=== PATIENT | male | born 1975 | race Caucasian/White ===

== ENCOUNTER 2018-05-22 14:18 | Emergency (ER) | payer OTHER, MEDICAID ==
[~2018-05-22] VITALS: Ht 182.9 cm; Wt 91.0 kg
[~2018-05-22 14:18] MED LIST: ZITHROMAX250 MG PO
[2018-05-22] MEDS ORDERED: KEFLEX500 M1 PO (15:24)
[2018-05-22 15:31] VITALS: BP 164/99
[2018-05-22] MEDS ORDERED: LISINOPRIL10 MG PO ×2 (15:35→15:36)
== END 2018-05-22 15:39 | disposition home or self-care (01) | DRG 914 ==
LOC: ED 14:18
PROC: 0HQGXZZ Repair Left Hand Skin, External Approach (ICD-10-PCS; principal; 2018-05-22)
DX: S61.422A Laceration with foreign body of left hand, initial encounter (principal); I10 Essential (primary) hypertension; F17.210 Nicotine dependence, cigarettes, uncomplicated; W29.3XXA Contact with powered garden and outdoor hand tools and machinery, initial encounter; Y93.H2 Activity, gardening and landscaping; Y92.89 Other specified places as the place of occurrence of the external cause; Y99.0 Civilian activity done for income or pay

== ENCOUNTER 2018-06-01 13:13 | Emergency (ER) | payer OTHER, MEDICAID ==
[~2018-06-01] VITALS: Ht 182.9 cm; Wt 99.5 kg
[~2018-06-01 13:13] MED LIST changes: +KEFLEX500 M1 PO; +LISINOPRIL10 MG PO
[2018-06-01 13:43] VITALS: BP 131/89
== END 2018-06-01 13:43 | disposition home or self-care (01) | DRG 950 ==
LOC: ED 13:13
DX: S61.422D Laceration with foreign body of left hand, subsequent encounter (principal)

== ENCOUNTER 2019-02-06 10:28 | Emergency (ER) | payer SELFPAY ==
[~2019-02-06] VITALS: Ht 182.9 cm; Wt 230.0 kg
[2019-02-06 11:11] LABS: HEMATOCRIT 52.3 % (39.0-50.0); HEMOGLOBIN 17.3 g/dl (14.0-18.0); MEAN CELL VOLUME 93.1 fL CALC (80.0-100.0); MEAN CORPUSCULAR HGB 30.8 pG CALC (26.0-32.0); MEAN CORPUSCULAR HGB CONC 33.1 g/L CALC (32.0-36.0); NEUT# 4.86 thou/uL (1.82-7.42); RED BLOOD COUNT 5.62 mill/uL (4.70-6.10); RED CELL DISTRI WIDTH 12.7 % (11.5-15.5)
[2019-02-06 11:19] LABS: ALBUMIN 4.4 g/dL (3.2-5.0); ALKALINE PHOSPHATASE 130 u/l (38-126); ANION GAP 13 (6-22 (CALC)); BILIRUBIN, TOTAL 0.6 mg/dL (0.0-1.4); BUN 9 mg/dL (9-20); BUN/CREATININE RATIO 12 (12-20 (CALC)); CARBON DIOXIDE 26 mmol/l (22-30); CHLORIDE 105 mmol/l (95-108); CREATININE 0.8 mg/dL (0.7-1.3); GFR > 60 ML/MIN (>=60 (CALC)); GFR FOR AFR.AMER. > 60 ML/MIN (>=60 (CALC)); LIPASE 81 u/l (23-300); POTASSIUM 4.2 mmol/l (3.5-5.1); SGOT/AST 65 u/l (17-59); SODIUM 140 mmol/l (137-146); TOTAL PROTEIN 7.7 g/dL (6.3-8.2)
[2019-02-06] MEDS ORDERED: VENTOLIN HFA IN (11:59)
[2019-02-06] MEDS ORDERED: DELTASONE20 MG PO (11:59)
[2019-02-06 12:03] VITALS: BP 169/87
== END 2019-02-06 12:15 | disposition home or self-care (01) | DRG 203 ==
LOC: ED 10:28
PROVIDERS: Emergency Medicine
DX: J45.909 Unspecified asthma, uncomplicated (principal); R06.02 Shortness of breath; R07.89 Other chest pain

== ENCOUNTER 2019-03-18 13:56 | Emergency (ER) | payer SELFPAY ==
[~2019-03-18] VITALS: Ht 182.9 cm; Wt 90.0 kg
[~2019-03-18 13:56] MED LIST changes: +DELTASONE20 MG PO; +VENTOLIN HFA IN
[2019-03-18] MEDS ORDERED: KEFLEX500 M1 PO (14:47)
[2019-03-18] MEDS ORDERED: CIPROFLOXACN500 MG PO (14:47)
[2019-03-18 14:55] VITALS: BP 187/89
== END 2019-03-18 14:55 | disposition home or self-care (01) | DRG 603 ==
LOC: ED 13:56
DX: L02.611 Cutaneous abscess of right foot (principal); L03.031 Cellulitis of right toe; F17.200 Nicotine dependence, unspecified, uncomplicated; I10 Essential (primary) hypertension

== ENCOUNTER 2019-11-05 | Emergency (ER) | payer SELFPAY ==
[~2019-11-05] MED LIST changes: +CIPROFLOXACN500 MG PO
[2019-11-05] MEDS ORDERED: LISINOPRIL2.5 MG PO (20:53)
[2019-11-05] MEDS ORDERED: WATER PILL (20:54)
[2019-11-05 21:40] LABS: HEMATOCRIT 45.6 % (39.0-50.0); HEMOGLOBIN 15.3 g/dl (14.0-18.0); IMMATURE GRANULOCYTES 0.6 % (0.0-5.0); MEAN CELL VOLUME 90.5 fL CALC (80.0-100.0); MEAN CORPUSCULAR HGB 30.4 pG CALC (26.0-32.0); MEAN CORPUSCULAR HGB CONC 33.6 g/dL CAL (32.0-36.0); NEUT# 4.57 thou/uL (1.82-7.42); RED BLOOD COUNT 5.04 mill/uL (4.70-6.10); RED CELL DISTRI WIDTH 12.9 % (11.5-15.5)
--- NOTE | 2019-11-05 21:41 | NUR ---
BREATHING TREATMENT GIVEN BACK TO BACK. BREATHING TECH. FOR GOOD DEPOSITION TO THE LUNG
[2019-11-05 21:58] LABS: ALBUMIN 3.9 g/dL (3.2-5.0); ALKALINE PHOSPHATASE 118 u/l (38-126); ANION GAP 11 (6-22 (CALC)); BILIRUBIN, TOTAL 0.5 mg/dL (0.0-1.4); BUN 15 mg/dL (9-20); BUN/CREATININE RATIO 17 (12-20 (CALC)); CARBON DIOXIDE 28 mmol/l (22-30); CHLORIDE 104 mmol/l (95-108); CREATININE 0.9 mg/dL (0.7-1.3); GFR > 60 ML/MIN (>=60 (CALC)); GFR FOR AFR.AMER. > 60 ML/MIN (>=60 (CALC)); POTASSIUM 3.9 mmol/l (3.5-5.1); SGOT/AST 35 u/l (17-59); SODIUM 139 mmol/l (137-146); TOTAL PROTEIN 6.9 g/dL (6.3-8.2)
[2019-11-05] MEDS ORDERED: VENTOLIN H108 MCG/AC IN ×2 (22:41)
[2019-11-05] MEDS ORDERED: MEDDOSEPAK PO ×2 (22:41)
[2019-11-05] MEDS ORDERED: ZITHROMAX250 MG PO (22:41)
== END 2019-11-05 23:11 | disposition home or self-care (01) | DRG 203 ==
DX: J45.901 Unspecified asthma with (acute) exacerbation (principal); J84.10 Pulmonary fibrosis, unspecified; I10 Essential (primary) hypertension; F17.200 Nicotine dependence, unspecified, uncomplicated

== ENCOUNTER 2020-05-25 20:43 | Emergency (ER) | payer SELFPAY ==
[~2020-05-25] VITALS: Ht 182.9 cm; Wt 86.3 kg
[~2020-05-25 20:43] MED LIST changes: +LISINOPRIL2.5 MG PO; +MEDDOSEPAK PO; +VENTOLIN H108 MCG/AC IN; +WATER PILL
[2020-05-25] MEDS ORDERED: LISINOP/HCTZ1 TAB PO (20:55)
[2020-05-25] MEDS ORDERED: AMOXICILLIN500 MG PO (20:58)
[2020-05-25 21:07] VITALS: BP 132/87
== END 2020-05-25 21:07 | DRG 605 ==
LOC: ED 20:43
DX: S80.811A Abrasion, right lower leg, initial encounter (principal); I10 Essential (primary) hypertension; F17.200 Nicotine dependence, unspecified, uncomplicated; W25.XXXA Contact with sharp glass, initial encounter

== ENCOUNTER 2022-06-13 17:13 | Emergency (ER) | payer SELFPAY ==
[~2022-06-13] VITALS: Ht 182.9 cm; Wt 91.0 kg
[~2022-06-13 17:13] MED LIST changes: +AMOXICILLIN500 MG PO; +LISINOP/HCTZ1 TAB PO
[2022-06-13] MEDS ORDERED: HYDROCHLOROTH12.5 MG PO (17:40)
[2022-06-13 17:47] LABS: HEMATOCRIT 49.3 % (39.0-50.0); HEMOGLOBIN 16.8 g/dl (14.0-18.0); IMMATURE GRANULOCYTES 0.5 % (0.0-5.0); MEAN CELL VOLUME 91.8 fL CALC (80.0-100.0); MEAN CORPUSCULAR HGB 31.3 pG CALC (26.0-32.0); MEAN CORPUSCULAR HGB CONC 34.1 g/dL CAL (32.0-36.0); NEUT# 15.44 thou/uL (1.82-7.42); RED BLOOD COUNT 5.37 mill/uL (4.70-6.10); RED CELL DISTRI WIDTH 12.4 % (11.5-15.5)
[2022-06-13 17:57] LABS: ALBUMIN 4.7 g/dL (3.2-5.0); ALKALINE PHOSPHATASE 75 u/l (38-126); ANION GAP 17 (6-22 (CALC)); BILIRUBIN, TOTAL 1.5 mg/dL (0.0-1.4); BUN 15 mg/dL (9-20); BUN/CREATININE RATIO 14 (12-20 (CALC)); CARBON DIOXIDE 26 mmol/l (22-30); CHLORIDE 98 mmol/l (95-108); CPK 488 u/l (52-200); CREATININE 1.1 mg/dL (0.7-1.3); GFR FOR AFR.AMER. > 60 ML/MIN (>=60 (CALC)); GFR OTHER RACES > 60 ML/MIN (>=60 (CALC)); POTASSIUM 5.2 mmol/l (3.5-5.1); SGOT/AST 47 u/l (17-59); SODIUM 136 mmol/l (137-146)
[2022-06-13 18:45] LABS: URINE BILIRUBIN - DIPSTICK NEGATIVE (NEGATIVE); URINE BLOOD DIPSTICK TRACE-INTACT (NEGATIVE); URINE COLOR YELLOW; URINE GLUCOSE - DIPSTICK NEGATIVE (NEGATIVE); URINE KETONE 40 mg/dL (NEGATIVE); URINE LEUK ESTERASE NEGATIVE (NEGATIVE); URINE PROTEIN - DIPSTICK NEGATIVE (NEG-TRACE); URINE SPECIFIC GRAVITY 1.025; URINE UROBILINOGEN - DIPSTICK 0.2 E.U./dL (0.2)
[2022-06-13 18:47] LABS: URINE NITRITE - DIPSTICK NEGATIVE (Negative)
[2022-06-13 21:51] VITALS: BP 121/81
== END 2022-06-13 21:59 | disposition home or self-care (01) | DRG 392 ==
LOC: ED 17:13
PROVIDERS: Nurse Practitioner
DX: R10.9 Unspecified abdominal pain (principal); D72.829 Elevated white blood cell count, unspecified; R42 Dizziness and giddiness
CPT/HCPCS: Q9967